=== PATIENT | female | born 1970 | race Caucasian/White ===

== ENCOUNTER 2019-04-28 03:51 | Emergency (ER) | payer OTHER ==
[2019-04-28] MEDS ORDERED: LACTATED RINGERS SOLUTION 1,000 ML IV STA (04:41)
[2019-04-28] MEDS ORDERED: ONDANSETRON 4 MG/2 ML VIAL IVPUSH ONE (04:41)
[2019-04-28] MEDS ORDERED: FAMOTIDINE 20 MG/50 ML IVPB 20 MG/50 ML MG IVPB ONE ×2 (04:44→05:20)
[2019-04-28 04:51] VITALS: BMI 25.9
--- NOTE | 2019-04-28 04:55 | PDOC ---
History of Present Illness - General Chief Complaint: Nausea/Vomiting Stated Complaint: WEAKNESS Time Seen by Provider: 04/28/19 04:10 History Source: Patient Exam Limitations: No Limitations - History of Present Illness Initial Comments: 04/28/19 04:45 48 yo female pmh chronic anemia presents to the ED for sudden onset WHELAN, epigastric pain, NB/NB vomiting, loose stools and weakness. Pt states around 11 pm tonight the symptoms began suddenly, went to the bathroom, while on the toilet had a severe WHELAN became very weak and felt as though she may pass out. Daughter at the bedside came home and found pt on the toilet very weak and called EMS. Denies recent travel, sick contacts, past hx of similar episode, F/C , back pain, abdominal pain, changes in urinary habits Past History - Past Medical History Allergies/Adverse Reactions: Allergies Allergy/AdvReac Type Severity Reaction Status Date / Time apple Allergy Verified 04/28/19 05:11 avocado Allergy Verified 04/28/19 05:11 nut - unspecified Allergy Verified 04/28/19 05:11 Home Medications: Ambulatory Orders NK [No Known Home Medication] 04/28/19 Review of Systems - Review of Systems Constitutional: No: Chills, Fever Respiratory: No: Shortness of Breath Cardiac (ROS): No: Chest Pain ABD/GI: Yes: Diarrhea, Nausea, Vomiting : No: Burning, Dysuria, Flank Pain, Hematuria Musculoskeletal: No: Back Pain Neurological: Yes: Headache, Weakness. No: Numbness, Paresthesia, Unsteady Gait *Physical Exam - Physical Exam General Appearance: Yes: Nourished, Appropriately Dressed. No: Apparent Distress HEENT: positive: EOMI, [place] Neck: positive: Supple. negative: Carotid bruit Respiratory/Chest: positive: Lungs Clear, Normal Breath Sounds. negative: Respiratory Distress, Accessory Muscle Use, Crackles, Rales, Rhonchi, Stridor, Wheezing Cardiovascular: positive: Regular Rhythm, Regular Rate, S1, S2. negative: Edema , JVD, Murmur Vascular Pulses: Dorsalis-Pedis (R): 4+, Doralis-Pedis (L): 4+ Gastrointestinal/Abdominal: positive: Flat, Soft. negative: Pulsatile Mass, Protuberent, Distended, Guarding, Rebound, Tenderness Musculoskeletal: negative: CVA Tenderness Extremity: positive: Normal Capillary Refill, Normal Inspection, Normal Range of Motion Integumentary: positive: Normal Color, Dry, Warm Neurologic: positive: manager social II-XII NML intact, Fully Oriented, Alert, Normal Mood/ Affect, Normal Response, Motor Strength 5/5. negative: Facial Droop, Numbness, Sensory Deficit, Confused, Disoriented ED Treatment Course - LABORATORY CBC & Chemistry Diagram: 04/28/19 05:24 04/28/19 05:24 Medical Decision Making - Medical Decision Making 04/28/19 06:57 48 yo female pmh chronic anemia presents to the ED for sudden onset WHELAN, epigastric pain, NB/NB vomiting, loose stools and weakness. Pt states around 11 pm tonight the symptoms began suddenly, went to the bathroom, while on the toilet had a severe WHELAN became very weak and felt as though she may pass out. Daughter at the bedside came home and found pt on the toilet very weak and called EMS. Denies recent travel, sick contacts, past hx of similar episode, F/C , back pain, abdominal pain, changes in urinary habits 04/28/19 07:16 vitals WNL EKG nsr without signs of ischemia Labs WNL including trop. No CP in the ED Pt states improvement in symptoms after fluids, tylenol and reglan pending head CT official read and likely home if no acute pathology S/O to night team for follow up imaging Discharge - Discharge Information Problems reviewed: Yes Clinical Impression/Diagnosis: Headache Condition: Fair - Follow up/Referral Referrals: Dorcas Borrero MD [Primary Care Provider] - - Patient Discharge Instructions - Post Discharge Activity
[2019-04-28] MEDS ORDERED: METOCLOPRAMIDE HCL INJECTION 10 MG/2 ML VIAL IVPUSH ONE (05:17)
[2019-04-28] MEDS ORDERED: ACETAMINOPHEN 500 MG TABLET (FP) PO ONE (05:17)
[2019-04-28] MEDS ORDERED: ACETAMINOPHEN 325 MG TABLET (FP) ONE (05:37)
[2019-04-28] MEDS ORDERED: METOCLOPRAMIDE HCL INJECTION 10 MG/2 ML VIAL ONE (05:37)
[2019-04-28 05:57] LABS: BASO % 0.5 % (0-2.0); EOS % 0.4 % (0-4.5); HEMATOCRIT 32.8 % (32.4-45.2); LYMPH % 17.6 % (8-40); MCH 28.1 pg (25.7-33.7); MCHC 33.6 g/dl (32.0-36.0); MEAN CELL VOLUME 83.6 fl (80-96); MEAN PLT VOLUME 8.9 fl (7.5-11.1); MONO % 5.7 % (3.8-10.2); NEUT % 75.8 % (42.8-82.8); PLATELET COUNT 251 K/MM3 (134-434); RBC 3.92 M/mm3 (3.60-5.2); RDW 14.4 % (11.6-15.6); WHITE BLOOD COUNT 4.6 K/mm3 (4.0-10.0)
[2019-04-28 06:23] LABS: INR 1.15 (0.83-1.09); PROTHROMBIN TIME (PATIENT) 13.6 SEC (9.7-13.0)
[2019-04-28 06:34] LABS: ALBUMIN 3.7 g/dl (3.4-5.0); BILIRUBIN,TOTAL 0.2 mg/dL (0.2-1); BLOOD UREA NITROGEN 10.1 mg/dL (7-18); CALCIUM 9.3 mg/dL (8.5-10.1); CREATININE 0.9 mg/dL (0.55-1.3); POTASSIUM 4.3 mmol/L (3.5-5.1); TOT PROT 7.6 g/dl (6.4-8.2)
--- NOTE | 2019-04-28 07:44 | PDOC ---
*Physical Exam - Vital Signs Last Vital Signs Temp Pulse Resp BP Pulse Ox 97.9 F 79 18 135/82 99 04/28/19 04:15 04/28/19 04:15 04/28/19 04:15 04/28/19 04:15 04/28/19 04:15 ED Treatment Course - LABORATORY CBC & Chemistry Diagram: 04/28/19 05:24 04/28/19 05:24 - ADDITIONAL ORDERS Additional order review: Laboratory Results 04/28/19 04/28/19 04/28/19 05:24 05:24 05:24 PT with INR 13.60 H INR 1.15 H Sodium 139 Potassium 4.3 Chloride 106 Carbon Dioxide 26 Anion Gap 6 L BUN 10.1 Creatinine 0.9 Est GFR (CKD-EPI)AfAm 87.02 Est GFR (CKD-EPI)NonAf 75.08 Random Glucose 144 H Calcium 9.3 Total Bilirubin 0.2 AST 24 ALT 23 Alkaline Phosphatase 85 Creatine Kinase Troponin I Total Protein 7.6 Albumin 3.7 Lipase 194 04/28/19 05:24 PT with INR INR Sodium Potassium Chloride Carbon Dioxide Anion Gap BUN Creatinine Est GFR (CKD-EPI)AfAm Est GFR (CKD-EPI)NonAf Random Glucose Calcium Total Bilirubin AST ALT Alkaline Phosphatase Creatine Kinase 151 Troponin I < 0.02 Total Protein Albumin Lipase 04/28/19 05:24 RBC 3.92 MCV 83.6 MCHC 33.6 RDW 14.4 MPV 8.9 Neutrophils % 75.8 Lymphocytes % 17.6 Monocytes % 5.7 Eosinophils % 0.4 Basophils % 0.5 - Medications Given in the ED: ED Medications Discontinued Medications Generic Name Dose Route Start Last Admin Trade Name [place] PRN Reason Stop Dose Admin Acetaminophen 975 mg 04/28/19 05:17 04/28/19 05:44 Tylenol - PO 04/28/19 05:18 975 mg ONCE ONE Administration Lactated Ringer's 1,000 mls @ 1,000 mls/hr 04/28/19 04:41 04/28/19 05:50 Lactated Ringers Solution IV 04/28/19 05:40 1,000 mls/hr ONCE STA Administration Famotidine/Sodium Chloride 20 mg in 50 mls @ 100 mls/hr 04/28/19 04:44 05:30 Pepcid 20 Mg Premixed Ivpb - IVPB 04/28/19 05:13 100 mls/hr ONCE ONE Administration Metoclopramide HCl 10 mg 04/28/19 05:17 04/28/19 05:44 Reglan Injection - IVPUSH 04/28/19 05:18 10 mg ONCE ONE Administration Ondansetron HCl 4 mg 04/28/19 04:41 04/28/19 05:35 Zofran Injection IVPUSH 04/28/19 04:42 Not Given ONCE ONE Medical Decision Making - Medical Decision Making 04/28/19 07:38 Sign out received from Dr May. Ms Catie Snowden is a 48yo woman with a PMH of anemia who presented to the ED overnight for sudden onset of headache, epigastric pain, NBNB vomiting, loose stools and generalized weakness starting around 11pm when she was using the bathroom. ED course so far notable for: - No concerning symptoms on exam, vitals WNL - EKG without concerning findings - Labs unremarkable - Pt feels improved following IVF, acetaminophen, reglan - CT head completed for acute WHELAN. CT read negative. Plan to d/c home to follow up with her PMD. Discussed with Dr Levy. Mela Perez PGY2 Discharge - Discharge Information Problems reviewed: Yes Clinical Impression/Diagnosis: Headache Qualifiers: Headache type: unspecified Headache chronicity pattern: acute headache Intractability: not intractable Qualified Code(s): R51 - Headache Nausea & vomiting Qualifiers: Vomiting type: unspecified Vomiting Intractability: non-intractable Qualified Code(s): R11.2 - Nausea with vomiting, unspecified Condition: Stable - Admission No - Follow up/Referral Referrals: Dorcas Borrero MD [Primary Care Provider] - - Patient Discharge Instructions Patient Printed Discharge Instructions: DI for Vomiting -- Adult Additional Instructions: Discharge Instructions: You were seen in the emergency department for nausea, vomiting, headache, and weakness. Your blood tests and CT scan did not show any concerning findings. Your symptoms are most likely due to a viral infection and will improve without any special treatment. Home Care and Follow Up: - Make sure you are drinking plenty of fluids while you are sick. Increase your normal fluid intake. It is OK if you do not feel like eating as long as you are staying well hydrated - You may use medications such as acetaminophen (Tylenol) 650-1000mg or ibuprofen (Advil, Motrin) 400-600mg every 6 hours as needed for pain or fever over 101F - You should feel better within a few days. If you are not feeling better in a week, follow up with your primary doctor. - Seek immediate care if you have worsening symptoms, you are unable to stay hydrated, you develop high fevers over 104F that do not come down with medication, or you have any other medical emergency. - Post Discharge Activity Work/Back to School Note: Back to Work
[2019-04-28 08:03] VITALS: BP 113/75; PULSE 80; TEMP 97.4
--- NOTE | 2019-04-28 09:09 | EKG ---
Test Reason : Blood Pressure : / mmHG Vent. Rate : 071 BPM Atrial Rate : 071 BPM P-R Int : 164 ms QRS Dur : 072 ms QT Int : 420 ms P-R-T Axes : 075 019 038 degrees QTc Int : 456 ms NORMAL SINUS RHYTHM NORMAL ECG NO PREVIOUS ECGS AVAILABLE Confirmed by Kalina Eid ([id number]) on 04/28/2019 9:09:24 AM Referred By: Confirmed By:Kalina Eid
== END 2019-04-28 08:16 | disposition home or self-care (01) ==
LOC: JER 03:51
PROC: 3E0337Z Introduction of Electrolytic and Water Balance Substance into Peripheral Vein, Percutaneous Approach (ICD-10-PCS; principal; 2019-04-28)
PROC: 3E033GC Introduction of Other Therapeutic Substance into Peripheral Vein, Percutaneous Approach (ICD-10-PCS; 2019-04-28)
PROC: 3E033GC Introduction of Other Therapeutic Substance into Peripheral Vein, Percutaneous Approach (ICD-10-PCS; 2019-04-28)
PROC: 3E033GC Introduction of Other Therapeutic Substance into Peripheral Vein, Percutaneous Approach (ICD-10-PCS; 2019-04-28)
DX: R51 Headache (principal); R11.2 Nausea with vomiting, unspecified; Z91.018 Allergy to other foods; Z91.011 Allergy to milk products
CPT/HCPCS: 36415; 70450-TC; 80053; 82550; 82553; 83690; 84484; 85025; 85610; 93005; 93010; 96361; 96365; 96375; 99285-25